=== PATIENT | male | born 1980 | race Caucasian/White ===

== ENCOUNTER → 2017-03-16 | Outpatient (CLI) | payer OTHER ==
[~2017-03-16] MED LIST: DEXT10TA22 PO; DIPH50CA62 PO; METH750T2 PO; OXYC1TAB9 PO; PANT40TA5 PO; SERT50TA5 PO
[2017-03-16 14:56] LABS: HEMOGLOBIN 16.5 g/dL (13.7-18.0); WHITE BLOOD COUNT 10.8 x10^3/uL (3.4-10)
[2017-03-16 15:09] LABS: BLOOD UREA NITROGEN 14 mg/dL (7-18)
[2017-03-16 15:12] LABS: ASPARTATE AMINO TRANSFERASE 21 U/L (15-37)
== END | disposition home or self-care (01) ==
LOC: STAR 13:25
PROVIDERS: ATTEND Neurological Surgery
DX: Z01.818 Encounter for other preprocedural examination (principal); M50.323 Other cervical disc degeneration at C6-C7 level; R79.1 Abnormal coagulation profile
CPT/HCPCS: 36415; 71020; 80053; 81003; 85025; 85610; 85730; 93005

== ENCOUNTER 2017-03-24 08:51 | Observation (INO) | payer OTHER ==
[~2017-03-24] VITALS: Ht 170.2 cm; Wt 85.2 kg
[~2017-03-24 08:51] MED LIST changes: +BACITRACIN 50,000 UNIT ONE; +BUPIVACAINE/PF 0.5% ONE; +EPINEPHRINE 1 MG/ML, 1ML ONE; +THROMBIN 5,000 UNIT VIAL TP ONE
[2017-03-24] MEDS ORDERED: LACTATED RINGERS 1,000 ML IV SCH (09:21)
[2017-03-24] MEDS ORDERED: FLU VACCINE PER PHARMACY IM ONE (10:00)
[2017-03-24] MEDS ORDERED: FLU VACC QS2017-18 (36MOS+) UP/PF 0.5 ML IM-VACC ONE (10:00)
[2017-03-24] MEDS ORDERED: MIDAZOLAM 1 MG/ML, 2ML ONE (10:30)
[2017-03-24] MEDS ORDERED: FENTANYL PF 250 MCG/5ML ONE (10:31)
[2017-03-24] MEDS ORDERED: PROPOFOL 100 ML ONE (10:51)
[2017-03-24] MEDS ORDERED: BACITRACIN 50,000 UNIT IM ONE (11:57)
[2017-03-24] MEDS ORDERED: THROMBIN 5,000 UNIT VIAL TP ONE (11:58)
[2017-03-24] MEDS ORDERED: BUPIVACAINE/PF-EPI 0.5% 1:200K INFIL ONE (11:59)
[2017-03-24] MEDS ORDERED: ONDANSETRON 2MG/ML, 2ML ONE (12:30)
[2017-03-24] MEDS ORDERED: CEFAZOLIN 1,000 MG ONE (12:30)
[2017-03-24] MEDS ORDERED: DEXAMETHASONE 4 MG/ML, 5ML ONE (12:30)
[2017-03-24] MEDS ORDERED: ROCURONIUM 10 MG/ML,10ML ONE (12:30)
[2017-03-24] MEDS ORDERED: MEPERIDINE/PF 25MG/0.5ML IVPush PRN (14:00)
[2017-03-24] MEDS ORDERED: DIAZEPAM 5 MG/ML, 2ML IVPush PRN (14:00)
[2017-03-24] MEDS ORDERED: OXYcodone 5 MG/5 ML ORAL.SOL UDC PO PRN (14:00)
[2017-03-24] MEDS ORDERED: ONDANSETRON 2MG/ML, 2ML IVPush PRN ×2 (14:00→15:00)
[2017-03-24] MEDS ORDERED: PROMETHAZINE 25 MG/ML, 1ML IV PRN (14:00)
[2017-03-24] MEDS ORDERED: MIDAZOLAM 1 MG/ML, 2ML IV PRN (14:00)
[2017-03-24] MEDS ORDERED: ACETAMINOPHEN 325 MG TABLET PO PRN (14:00)
[2017-03-24] MEDS ORDERED: LABETALOL 5MG/ML, 20ML IV PRN (14:00)
[2017-03-24] MEDS ORDERED: DIPHENHYDRAMINE 50 MG/ML, 1ML IM PRN (15:00)
[2017-03-24] MEDS ORDERED: SENNA/DOCUSATE TABLET PO PRN (15:00)
[2017-03-24] MEDS ORDERED: PROMETHAZINE 25 MG/ML, 1ML IM PRN (15:00)
[2017-03-24] MEDS ORDERED: MAGNESIUM HYDROXIDE 8%, 30ML UDC PO PRN (15:00)
[2017-03-24] MEDS ORDERED: LABETALOL 5MG/ML, 20ML IVPush PRN (15:00)
[2017-03-24] MEDS ORDERED: DIPHENHYDRAMINE 50 MG CAPSULE PO PRN (15:00)
[2017-03-24] MEDS ORDERED: DIPHENHYDRAMINE 50 MG/ML, 1ML IVPush PRN (15:00)
[2017-03-24] MEDS ORDERED: PHARMACY MAY ADJ FOR RENAL FX MC PRN (15:00)
[2017-03-24] MEDS ORDERED: BISACODYL 10 MG SUPP PR PRN (15:00)
[2017-03-24] MEDS ORDERED: HYDROmorphone 2 MG/ML, 1ML ONE (15:01)
[2017-03-24] MEDS ORDERED: ACETAMINOPHEN 650 MG/20.3 ML UDC ONE (15:01)
[2017-03-24] MEDS ORDERED: OXYcodone 5 MG/5 ML ORAL.SOL UDC ONE (15:01)
[2017-03-24] MEDS ORDERED: FENTANYL PF 100 MCG/2ML ONE ×2 (15:01→15:20)
[2017-03-24] MEDS: HYDROmorphone 1 MG/ML, 1ML IV PRN ×4 (15:03→15:43)
[2017-03-24] MEDS: FENTANYL PF 100 MCG/2ML IV PRN ×3 (15:04→15:49)
[2017-03-24 16:30] VITALS: BP 129/91
[2017-03-24] MEDS: CEFAZOLIN PMX 1GM/50ML 50 ML IVPB SCH (17:01)
[2017-03-24] MEDS: METHOCARBAMOL 750 MG TABLET PO PRN (17:01)
[2017-03-24] MEDS: HYDROmorphone 1 MG/ML, 1ML IVPush PRN ×3 (17:01→20:57)
[2017-03-24] MEDS: D5%-0.9% NACL+KCL 20MEQ 1,000 ML IV SCH (18:38)
[2017-03-24 20:00] VITALS: BP 131/87
[2017-03-24] MEDS ORDERED: methylPREDNISolone*ACETATE* 80 MG/ML IM ONE (20:00)
[2017-03-24] MEDS: OXYcodone IR 5MG TABLET PO PRN (20:10)
[2017-03-24] MEDS: SODIUM CHLORIDE FLUSH 10ML SYR IVF SCH (21:00)
[2017-03-25] VITALS: BP 141/61
[2017-03-25] MEDS: OXYcodone IR 5MG TABLET PO PRN ×4 (00:06→12:30)
[2017-03-25] MEDS: METHOCARBAMOL 750 MG TABLET PO PRN ×2 (00:45→09:00)
[2017-03-25] MEDS: CEFAZOLIN PMX 1GM/50ML 50 ML IVPB SCH (00:46)
[2017-03-25] MEDS: D5%-0.9% NACL+KCL 20MEQ 1,000 ML IV SCH ×2 (01:00→11:00)
[2017-03-25 04:00] VITALS: BP 105/76
[2017-03-25] MEDS: HYDROmorphone 1 MG/ML, 1ML IVPush PRN ×2 (04:41→10:36)
[2017-03-25] MEDS: CEPHALEXIN 500 MG CAPSULE PO SCH ×2 (06:43→11:24)
[2017-03-25] MEDS: SODIUM CHLORIDE FLUSH 10ML SYR IVF SCH (09:00)
[2017-03-25] MEDS ORDERED: DEXTROAMPHETAMINE HOMEMEDPO SCH (09:00)
[2017-03-25] MEDS ORDERED: [UNRECOGNIZED DRUG - OTHER] HOMEMEDPO SCH (09:00)
[2017-03-25] MEDS ORDERED: AMPHETAMINE HOMEMEDPO SCH (09:00)
[2017-03-25] MEDS ORDERED: SERTRALINE 50MG TABLET PO SCH (09:00)
[2017-03-25] MEDS ORDERED: PANTOPROZOLE 40MG TABLET PO SCH (09:00)
[2017-03-25 09:01] VITALS: BP 106/72
[2017-03-25] MEDS ORDERED: CEPH-368 PO (11:40)
[2017-03-25] MEDS ORDERED: OXYC10TA6 PO (11:40)
[2017-03-25] MEDS ORDERED: METH750T87 PO (11:40)
== END 2017-03-25 12:40 | disposition home or self-care (01) ==
LOC: OUT 08:51 → ORIP 14:56 → 4NOR 16:46 → EDSTATUS 18:00
PROVIDERS: ADMIT Neurological Surgery; ATTEND Neurological Surgery
DX: M50.122 Cervical disc disorder at C5-C6 level with radiculopathy (principal); M50.123 Cervical disc disorder at C6-C7 level with radiculopathy; M25.78 Osteophyte, vertebrae; M48.02 Spinal stenosis, cervical region; G95.20 Unspecified cord compression; M79.642 Pain in left hand; M79.641 Pain in right hand; R20.2 Paresthesia of skin; R53.1 Weakness; Z23 Encounter for immunization
CPT/HCPCS: 20937; 22551; 22552; 22854; 36415; 72040; 86850; 86900; 90471; 90686; 96365; 96372; 96375; 96376; 97162; 97165; C1713; C1762; G0378; J0171; J0690; J1040; J1100; J1170; J2250; J2405; J2704; J3010; J3360; J3480; J3490; J7120